=== PATIENT | male | born 1990 | race Hispanic/Latino ===

== ENCOUNTER 2017-08-22 06:13 | Emergency (ER) | payer OTHER ==
[2017-08-22] MEDS: KETOROLAC 30 MG/ML VIAL (J1885) IM (08:12)
[2017-08-22] MEDS ORDERED: LIDOCAINE 1% MDV INJ 50 ML VIAL SC (08:15)
[2017-08-22] MEDS: LIDOCAINE 1% MDV 20ML VIAL SC (08:29)
[2017-08-22] MEDS ORDERED: NEOSPORIN OINT 0.9 GM PKT (FLOOR STOCK) As Ordered (08:47)
[2017-08-22] MEDS: OXYCODONE/APAP 5MG/325MG(BULK FOR ED) 1 TABLET PO (09:41)
[2017-08-22] MEDS: PERCOCET 5MG/325MG TAB PO (09:41)
== END 2017-08-22 09:42 | disposition home or self-care (01) ==
LOC: M ED 06:13
DX: S02.40CA Maxillary fracture, right side, initial encounter for closed fracture (principal); S01.511A Laceration without foreign body of lip, initial encounter; S01.81XA Laceration without foreign body of other part of head, initial encounter; Y04.0XXA Assault by unarmed brawl or fight, initial encounter; Y92.89 Other specified places as the place of occurrence of the external cause
CPT/HCPCS: J1885